=== PATIENT | male | born 1965 | race Caucasian/White ===

== ENCOUNTER → 2017-08-07 15:18 | Outpatient (CLI) | payer OTHER, SELFPAY ==
[2017-08-07 16:44] LABS: PSA,Total - Annual Screen 1.09 ng/mL (0.00-4.00)
== END ==
PROVIDERS: Family Provider Internal Medicine; PCP Internal Medicine; Visit Provider Urology
DX: Z12.5 Encounter for screening for malignant neoplasm of prostate (principal)
CPT/HCPCS: 36415; 84153; G0103

== ENCOUNTER → 2018-09-22 16:42 | Outpatient (CLI) | payer OTHER, SELFPAY ==
[2018-09-22 18:04] LABS: PSA,Total - Annual Screen 1.47 ng/mL (0.00-4.00)
== END ==
PROVIDERS: Family Provider Internal Medicine; PCP Internal Medicine; Referring Provider Urology; Visit Provider Urology
DX: Z12.5 Encounter for screening for malignant neoplasm of prostate (principal); Z80.42 Family history of malignant neoplasm of prostate
CPT/HCPCS: 36415; 84153; G0103

== ENCOUNTER → 2019-10-05 15:18 | Outpatient (CLI) | payer OTHER, SELFPAY ==
[2019-10-05 16:42] LABS: PSA,Total - Annual Screen 1.48 ng/mL (0.00-4.00)
== END ==
PROVIDERS: PCP Internal Medicine; Referring Provider Urology; Visit Provider Urology
DX: Z12.5 Encounter for screening for malignant neoplasm of prostate (principal)
CPT/HCPCS: 36415; 84153; G0103

== ENCOUNTER 2020-10-13 08:09 | Emergency (ER) | payer OTHER, SELFPAY ==
[2020-10-13 08:11] VITALS: BP 150/94; PULSE 74; RESP 17; TEMP 36.4; O2SAT 99; BMI 35.3
--- NOTE | 2020-10-13 08:56 | EKG12_ITS ---
Test Reason : SOB Blood Pressure : / mmHG Vent. Rate : 079 BPM Atrial Rate : 079 BPM P-R Int : 192 ms QRS Dur : 080 ms QT Int : 370 ms P-R-T Axes : 013 -21 047 degrees QTc Int : 424 ms Normal sinus rhythm Low voltage QRS Septal infarct , age undetermined Abnormal ECG Confirmed by CANDICE SANDERS, ADELINE ([id number]), food editor HEIDI SAVAGE ([id number]) on 10/17/2020 1:15:45 PM Referred By: PETERSON Confirmed By:ADELINE HARVEY MD
--- NOTE | 2020-10-13 08:59 | NURSING ---
NO OLD EKGS
--- NOTE | 2020-10-13 09:08 | RAD_ITS ---
STUDY: X-RAY CHEST REASON FOR EXAM: Male, 55 years old. Sob TECHNIQUE: Single AP portable view of the chest. COMPARISON: None. FINDINGS: The lungs are clear and expanded. There is no demonstrated pleural abnormality. Normal size heart. Normal mediastinum and fabi. Normal visualized pulmonary arteries. Normal visualized aortic arch and descending thoracic aorta. Normal visualized thoracic spine. Normal visualized ribs, clavicles, and shoulders. There is no demonstrated abnormality of the visualized soft tissue structures of the upper abdomen. RAD/Chest 1 View (Portable) IMPRESSION: Normal x-ray examination of the chest. Electronically Signed: Jarod Staley MD at 9:31 EDT , Service support ,
[2020-10-13] MEDS: hydrOXYzine 50 MG/ML Vial IM (09:11)
[2020-10-13 09:12] LABS: Absolute Lymphocyte Count 1.23 X10^3/uL (0.83-4.51); Basophil# 0.04 X10^3/uL; Basophil% 0.8 % (0-1); Eosinophil# 0.19 X10^3/uL; Eosinophils% 3.7 % (0-5); Hematocrit 47.3 % (40-54); Hemoglobin 16.7 g/dL (13.0-16.5); Lymphocyte # 1.23 X10^3/ul (0.83-4.51); Lymphocyte % 24.2 % (19-41); Mean Corp Hgb Conc 35.3 g/dL (32-36); Mean Corpuscular Hgb 31.7 pg (27.0-32.0); Mean Corpuscular Volume 89.9 fL (80-94); Mean Platelet Vol. 10.9 fl (6.2-12.0); Monocyte% 11.8 % (0-10); NRBC Flagged by Analyzer 0 % (0-5); Neutrophil # 3.02 X10^3/uL (2.7-7.7); Neutrophil % 59.3 % (47-70); Platelet Count 158 K/mm3 (150-450); RBC Distribution Width CV 11.7 % (11.6-14.6); RBC Distribution Width SD 38.7 fl (35.1-43.9); Red Blood Count 5.26 M/mm3 (4.6-6.2); White Blood Count 5.1 K/mm3 (4.4-11.0)
[2020-10-13] MEDS: LORazepam 2 MG/ML Syringe 0.5 MG IV (09:12)
--- NOTE | 2020-10-13 09:27 | EX.ED.DYSGE1 ---
HPI History of Present Illness Chief Complaint: Anxiety Narrative Narrative: Patient presents with anxiety. He tells me he has always been nervous but no has no history of anxiety. Apparently over the past few weeks he has been more nervous, he is worried about his job he is worried that he has to take care of his mother, and sometimes feels like he cannot work as well at his normal job. He has no suicidal ideations. He has been on 2 rounds of steroids last one finished over a week ago. He also has had some upper respiratory symptoms including asthma and some upper airway congestion. He is denying chest pain, at times it is difficult to breathe but currently he is not having any shortness of breath. [facility] Medical History (Updated 10/13/20 @ 10:[address] Mickey Shaw MD) Anxiety Home Medications doxycycline monohydrate 100 mg PO BID 10/13/20 [History Last Taken Unknown] fluticasone propionate 1 spray INTRANASAL BID 10/13/20 [History Last Taken Unknown] hydroxyzine pamoate [Vistaril] 50 mg PO BID #30 cap 10/13/20 [Rx Last Taken Unknown] Allergy/AdvReac Type Severity Reaction Status Date / Time Sulfa (Sulfonamide AdvReac Upset Verified 10/13/20 08:10 Antibiotics) Stomach Social History Smoking Status: Never smoker ROS ROS ED ROS Narrative Past medical history: Reviewed Medications: Reviewed Social history: Noncontributory Review of systems: All systems negative except as indicated General: No fever Eyes: No visual changes ENT: Upper airway congestion that improved Neck: No neck pain Cardiovascular: No chest pain Respiratory: No current shortness of breath Gastrointestinal: No abdominal pain, nausea vomiting or diarrhea Genitourinary: No dysuria Musculoskeletal: Denies myalgias no difficulty with ambulation Skin: No rash Neurological: No memory loss, confusion or any focal weakness Psych: No suicidal ideations. Severe anxiety as in HPI Hematologic: No easy bleeding or easy bruising EXAM Physical Exam Narrative Exam Narrative: Physical exam General: He appears anxious but does not appear in any distress he does not appear acutely ill Head: Normocephalic, Atraumatic Eyes: Conjunctiva not pale ENT: Moist mucous membranes, no current upper airway congestion Neck: Supple, Nontender, No lymphadenopathy Cardiovascular: Regular rate, Regular rhythm Respiratory: No distress, CTA bilaterally. I cannot appreciate any wheezing. Abdomen: Soft, Nontender, Nondistended Back: Nontender, Normal Inspection. Negative for: CVA tenderness Extremities: Nontender, No edema Skin: Normal color, No rash Neurological: Alert, Normal Strength, Normal Sensation Psychological: Anxious Const Vital Signs: 10/13/20 08:11 Temperature 97.6 F L Temperature Source Temporal Pulse Rate 74 Respiratory Rate 17 Blood Pressure 150/94 H Blood Pressure Mean 112 Pulse Ox 99 Oxygen Delivery Method Room Air MDM MDM MDM Narrative Medical decision making narrative: Patient has an unremarkable emergency department work-up he appears well I gave him Vistaril and small amount of Ativan and he is now completely improved and his anxiety is gone. He will need to get started on an SSRI I will refer him to PCP. I also gave him a list of psychiatric and counseling providers in the area. Lab Data Labs: Laboratory Results - last 24 hr 10/13/20 10/13/20 09:05 09:05 WBC 5.1 RBC 5.26 Hgb 16.7 H Hct 47.3 MCV 89.9 MCH 31.7 MCHC 35.3 RDW Std Deviation 38.7 RDW Coeff of Karen 11.7 Plt Count 158 MPV 10.9 Immature Gran % (Auto) 0.200 Neut % (Auto) 59.3 Lymph % (Auto) 24.2 Preble % (Auto) 11.8 H Eos % (Auto) 3.7 Baso % (Auto) 0.8 Absolute Neuts (auto) 3.0 Absolute Lymphs (auto) 1.23 Nucleated RBC % 0 Sodium 137 Potassium 4.0 Chloride 104 Carbon Dioxide 25.0 Anion Gap 8 BUN 13 Creatinine 0.94 Estim Creat Clear Calc 97.99 Est GFR (MDRD) Af Amer 106 Est GFR (MDRD) Non-Af 88 BUN/Creatinine Ratio 13.8 Glucose 107 H Calcium 8.9 Total Bilirubin 0.50 AST 30 ALT 30 Alkaline Phosphatase 105 Troponin I High Sens 7.1 Total Protein 7.6 Albumin 4.0 Globulin 3.6 Albumin/Globulin Ratio 1.1 Radiography Diagnostic Testing: Radiology Impression Chest X-Ray 10/13/20 09:08 IMPRESSION: Normal x-ray examination of the chest. Electronically Signed: Jarod Staley MD at 9:31 EDT , Service support , EKG Initial EKG: Comments: Normal sinus rhythm with a rate of 79. Normal OK and QTc intervals. No acute ischemic changes. Interpreted by emergency doctor Discharge Plan Triage Chief Complaint: Anxiety ED Provider: Mickye Shaw Dx/Rx/DC Orders Clinical Impression: Anxiety Instructions: ED Anxiety Reaction Prescriptions: New hydroxyzine pamoate [Vistaril] 50 mg capsule 50 mg PO BID Qty: 30 RF: 0 No Action doxycycline monohydrate 100 mg tablet 100 mg PO BID RF: 0 fluticasone propionate 50 mcg/actuation spray,suspension 1 spray INTRANASAL BID RF: 0 Primary Care Provider: Keisha Newsome Referrals: Keisha Newsome MD [Primary Care Provider] - 2 Days Disposition Disposition: Home, Self Care
[2020-10-13 09:31] LABS: ALB/GLOB Ratio 1.1 RATIO (0.9-2.4); AST(SGOT) 30 U/L (15-37); Alanine Aminotransfer ALT/SGPT 30 U/L (16-61); Alkaline Phosphatase 105 U/L (45-117); Anion Gap 8 (5-15); BUN 13 mg/dL (7-18); BUN/Creat Ratio 13.8 RATIO (10-20); Calcium,Total 8.9 mg/dL (8.5-10.1); Chloride 104 mmol/L (98-107); Creatinine, Serum 0.94 mg/dL (0.70-1.30); EST Glomerular Filtration Rate 88 mL/min (>60); Est Glom Filt Rate - Afr Amer 106 mL/min (>60); Estimated Creatinine Clearance 97.99 ml/min; Globulin 3.6 g/dL (2.2-4.2); Glucose 107 mg/dL (74-106); Protein, Total 7.6 g/dL (6.4-8.2); Sodium Level 137 mmol/L (136-145); Troponin-I HS 7.1 pg/mL (3.0-78.5)
[2020-10-13 10:40] VITALS: BP 138/68; PULSE 72; RESP 18; O2SAT 99
== END 2020-10-13 10:41 | disposition home or self-care (01) ==
PROVIDERS: Emergency Provider Emergency Medicine; PCP Internal Medicine
DX: F41.9 Anxiety disorder, unspecified (principal)
CPT/HCPCS: 71045; 80053; 84484; 85025; 93005; 96372; 96374; 99282; A4216

== ENCOUNTER → 2020-11-08 15:45 | Outpatient (CLI) | payer OTHER, SELFPAY ==
[2020-11-08 17:56] LABS: PSA,Total- Diagnostic 1.28 ng/mL (0.0-4.0)
== END ==
PROVIDERS: PCP Internal Medicine; Referring Provider Urology; Visit Provider Urology
DX: N40.1 Benign prostatic hyperplasia with lower urinary tract symptoms (principal)
CPT/HCPCS: 36415; 84153

== ENCOUNTER → 2021-11-16 | Outpatient (CLI) | payer BC, SELFPAY ==
[2021-11-16 11:56] LABS: PSA,Total - Annual Screen 1.25 ng/mL (0.00-4.00)
== END | disposition home or self-care (01) ==
LOC: LAB 10:08
PROVIDERS: PCP Internal Medicine; Referring Provider Registered Nurse; Visit Provider Registered Nurse
DX: Z12.5 Encounter for screening for malignant neoplasm of prostate (principal)
CPT/HCPCS: 36415; 84153; G0103

== ENCOUNTER → 2022-11-15 | Outpatient (CLI) | payer BC, SELFPAY | END | disposition home or self-care (01) | PROVIDERS: PCP Internal Medicine; Referring Provider Nurse Practitioner; Visit Provider Nurse Practitioner | DX: Z12.5 Encounter for screening for malignant neoplasm of prostate (principal) | CPT/HCPCS: 36415; 84153 ==

== ENCOUNTER → 2023-11-18 | Outpatient (CLI) | payer BC, SELFPAY ==
[2023-11-18 11:55] LABS: PSA,Total - Annual Screen 1.49 ng/mL (0.00-4.00)
== END | disposition home or self-care (01) ==
LOC: LAB 10:52
PROVIDERS: PCP Internal Medicine; Referring Provider Urology; Visit Provider Urology
DX: Z12.5 Encounter for screening for malignant neoplasm of prostate (principal)
CPT/HCPCS: 36415; 84153; G0103

== ENCOUNTER → 2024-03-05 | Outpatient (CLI) | payer OTHER, SELFPAY ==
--- NOTE | 2024-03-05 10:56 | RAD_ITS ---
STUDY: X-RAY - RIGHT HAND REASON FOR EXAM: Male, 58 years old. Sprain. 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 TECHNIQUE: 3 views of the right hand. COMPARISON: None. FINDINGS: Normal radiocarpal articulation. Normal distal radioulnar joint. Intact visualized carpal bones. There are cystic changes in the lunate and proximal hamate. Normal carpal articulations. Normal carpometacarpal articulation of the thumb. Normal second through fifth carpometacarpal joints. Normal metacarpi. Normal metacarpophalangeal joint of the thumb. Normal interphalangeal joint of the thumb. Normal proximal and distal phalanges of the thumb. Normal metacarpophalangeal joints of the second through fifth fingers. Normal proximal and distal interphalangeal joints of the second through fifth fingers. Normal phalanges of the second through fifth fingers. There is no demonstrated acute fracture. The soft tissue structures are unremarkable. RAD/Hand Min 3 Views IMPRESSION: Cystic changes in the lunate and proximal hamate. No demonstrated acute fracture. Electronically Signed: Adiel Solomon MD at 12:13 EST ,
--- NOTE | 2024-03-05 10:57 | RAD_ITS ---
STUDY: X-RAY - RIGHT WRIST REASON FOR EXAM: Male, 58 years old. Sprain. 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 TECHNIQUE: 3 views of the right wrist were obtained. COMPARISON: None. FINDINGS: Normal visualized distal radius and ulna. Normal radiocarpal articulation. Normal distal radioulnar articulation. Intact carpal bones. There are cystic changes in the lunate and proximal hamate. Normal carpal articulations. Normal carpometacarpal articulation of the thumb. Normal second through fifth carpometacarpal articulations. Normal visualized metacarpal bones. The soft tissue structures are unremarkable. There is no demonstrated acute fracture. RAD/Wrist min 3 Views IMPRESSION: Cystic changes in the lunate and proximal hamate. No demonstrated acute fracture. Electronically Signed: Adiel Solomon MD at 12:12 [facility] ,
== END | disposition home or self-care (01) ==
LOC: MTRAD 10:55
PROVIDERS: PCP Internal Medicine; Referring Provider Physician Assistant Surgical; Visit Provider Physician Assistant Surgical
DX: S63.501A Unspecified sprain of right wrist, initial encounter (principal); S63.8X1A Sprain of other part of right wrist and hand, initial encounter
CPT/HCPCS: 73110; 73130

== ENCOUNTER → 2024-11-24 | Outpatient (CLI) | payer BC, SELFPAY ==
[2024-11-24 13:04] LABS: PSA,Total - Annual Screen 1.20 ng/mL (0.02-4.00)
== END | disposition home or self-care (01) ==
LOC: LAB 11:23
PROVIDERS: PCP Internal Medicine; Referring Provider Urology; Visit Provider Urology
DX: Z12.5 Encounter for screening for malignant neoplasm of prostate (principal)
CPT/HCPCS: 36415; 84153; G0103